=== PATIENT | male | born 1985 | race Two or more races ===

== ENCOUNTER 2016-11-07 04:40 | Emergency (ER) | payer OTHER ==
[~2016-11-07] VITALS: Ht 175.3 cm; Wt 99.8 kg
[2016-11-07 04:47] VITALS: BP 150/75
[2016-11-07] MEDS ORDERED: HYDR-971 PO (05:02)
[2016-11-07] MEDS ORDERED: LIDO5JEL3 MM (05:02)
--- NOTE | 2016-11-07 05:02 | PHYS DOC ---
Past Medical History Past Medical History: No Pertinent History Past Surgical History: No Surgical History Alcohol Use: None Drug Use: None Adult General Chief Complaint Chief Complaint: DENTAL PROBLEM HPI HPI Patient is a 21 year old male who presents with dental pain. Patient states 2 days ago he burned the roof of his mouth eating hot fish. He has had severe hard palate & gum pain since that time. Denies pain to his teeth. Reports aching pain to left side of his face. Denies fevers, vomiting, abscess, trismus. No relief with ibuprofen at home. Does not have a dentist. Review of Systems Review of Systems Constitutional: Denies fever or chills HENT: Reports gum pain Respiratory: Denies cough or shortness of breath Cardiovascular: Denies chest pain GI: Denies nausea, vomiting Musculoskeletal: Denies back pain or joint pain Integument: Denies rash Neurologic: Denies headache Current Medications Current Medications Current Medications Medications (Trade) Dose Ordered Sig/Estuardo Start Time Stop Time Status Last Admin Dose Admin Lidocaine HCl (Viscous Lidocaine) 15 ml 1X ONCE 11/07/16 05:15 11/07/16 05:16 DC 11/07/16 05:08 15 ML Allergies Allergies Allergies Coded Allergies Type Severity Reaction Last Updated Verified No Known Drug Allergies 11/07/16 No Physical Exam Physical Exam Constitutional: obese, no acute distress, non-toxic appearance. HENT: Normocephalic, atraumatic, bilateral external ears normal, oropharynx moist, nose normal. hard palate anteriorly on the left side with mild erythema & inflammation, no palpable fluctuance or induration, no dental caries or focal tooth pain. no trismus. left submandibular lymphadenopathy. Eyes: conjunctiva normal, no discharge. Cardiovascular: no edema. Lungs & Thorax: no respiratory distress. Abdomen: nondistended. Skin: Warm, dry, Extremities: No deformity Neurologic: Alert and oriented X 3 Current Patient Data Vital Signs Vital Signs Date Time Temp Pulse Resp B/P Pulse Ox O2 Delivery O2 Flow Rate FiO2 11/07/16 04:47 98.2 89 18 98 Room Air 98.2 EKG EKG [] Radiology/Procedures Radiology/Procedures [] Course & Med Decision Making Course & Med Decision Making Pertinent Labs and Imaging studies reviewed. (See chart for details) Patient presents with oral pain. No evidence of dental infection, appears to be minor inflammation related to hot food. Gave viscous lidocaine & 6 tablets of norco as he is having severe discomfort. Recommend continue ibuprofen, avoid spicy or crunchy foods, follow up as needed with a dentist if not improving in 2-3 days. Come back for difficulty breathing or swallowing, or otherwise worsening condition. Discharged home in stable condition. [] Dragon Disclaimer Dragon Disclaimer This electronic medical record was generated, in whole or in part, using a voice recognition dictation system. Departure Departure Impression: Primary Impression: Gum inflammation Disposition: 01 HOME, SELF-CARE Condition: STABLE Patient Instructions: Teeth and Gum Care, [id number] Additional Instructions: You were seen in the emergency department today for inflammation of your gums. This is likely related to eating hot food. Please take ibuprofen for pain, use lidocaine & norco as needed. No drinking alcohol or driving while taking norco. Follow up with a dentist if not improving in 2-3 days. Come back for difficulty breathing or swallowing, or any otherwise worsening condition. Scripts Hydrocodone/Apap 5-325 ([place] 5-325 Tablet)1 Each Tablet1 Tab PO PRN Q6HRS PRN PAIN #6 TAB Ref 0 Prov:HARDY KEEN MD 11/07/16 Lidocaine Hcl 5 Ml Jel..ml.5 Ml MM BID PRN oral pain #30 ML Prov:HARDY KEEN MD 11/07/16 HARDY KEEN MD Nov 07, 2016 05:02
[2016-11-07] MEDS ORDERED: LIDOCAINE 2% VISCOUS 15 ML SOLUTION. SWSW ONE (05:15)
== END 2016-11-07 05:17 | disposition home or self-care (01) ==
LOC: EDBD 04:40 → ER 04:40
DX: K05.10 Chronic gingivitis, plaque induced (principal)
CPT/HCPCS: 99283

== ENCOUNTER 2019-01-02 16:38 | Emergency (ER) | payer OTHER, SELFPAY ==
[~2019-01-02] VITALS: Ht 177.8 cm; Wt 90.7 kg
[~2019-01-02 16:38] MED LIST: HYDR-3164 PO; LIDO5JEL3 MM
[2019-01-02] MEDS ORDERED: ONDANSETRON PF 4 MG/2 ML VIAL. IV ONE (17:00)
[2019-01-02] MEDS ORDERED: IV NORMAL SALINE 1000ML BAG 1,000 ML IV ONE (17:00)
[2019-01-02 17:17] LABS: BASO # 0.1 x10^3/uL (0.0-0.2); BASO % 1 % (0-3); EOS # 0.2 x10^3/uL (0.0-0.7); EOS % 2 % (0-3); HEMATOCRIT 43.6 % (39.0-53.0); HEMOGLOBIN 15.1 g/dL (13.0-17.5); LYMPH # 1.4 x10^3/uL (1.0-4.8); LYMPH % 18 % (24-48); MEAN CORPUSCULAR HEMOGLOBIN 34 pg (25-35); MEAN CORPUSCULAR HGB CONC 35 g/dL (31-37); MEAN CORPUSCULAR VOLUME 97 fL (79-100); MONO # 0.8 x10^3/uL (0.0-1.1); MONO % 10 % (0-9); NEUT # 5.3 x10^3uL (1.8-7.7); NEUT % 68 % (31-73); PLATELET COUNT 165 x10^3/uL (140-400); RED CELL DISTRIBUTION WIDTH 14.2 % (11.5-14.5); WHITE BLOOD COUNT 7.7 x10^3/uL (4.0-11.0)
[2019-01-02 17:23] VITALS: BP 150/67
[2019-01-02 17:23] LABS: BILIRUBIN,URINE NEGATIVE (NEG); CLARITY,URINE CLEAR; COLOR,URINE YELLOW; NITRITE,URINE NEGATIVE (NEG); PROTEIN,URINE NEGATIVE (NEG-TRACE); UROBILINOGEN,URINE 0.2 mg/dL (0.2 mg/dL)
[2019-01-02 17:25] LABS: FECAL OB PT NEGATIVE (NEG)
[2019-01-02 17:30] LABS: BARBITURATES NEG (NEG); BENZODIAZEPINES NEG (NEG); CANNABINOIDS NEG (NEG); COCAINE NEG (NEG); METHADONE NEG (NEG); OPIATES NEG (NEG); PHENCYCLIDINE NEG (NEG)
[2019-01-02 17:31] LABS: AMPHETAMINE/METHAMPHETAMINE NEG (NEG)
[2019-01-02 17:32] LABS: CREATININE 0.9 mg/dL (0.7-1.3); POTASSIUM 3.6 mmol/L (3.5-5.1)
[2019-01-02 17:35] LABS: BACTERIA,URINE 0 /HPF (0-FEW); RBC,URINE 0 /HPF (0-2); WBC,URINE 0 /HPF (0-4)
[2019-01-02 17:40] LABS: ALBUMIN 3.9 g/dL (3.4-5.0); ALBUMIN/GLOBULIN RATIO 1.1 (1.0-1.7); TOTAL BILIRUBIN 0.6 mg/dL (0.2-1.0); TOTAL PROTEIN 7.3 g/dL (6.4-8.2)
[2019-01-02] MEDS ORDERED: CONTRAST GIVEN. MC PRN (17:45)
[2019-01-02] MEDS ORDERED: IOHEXOL 300 MG/ML 100ML VIAL. IV ONE (18:00)
--- NOTE | 2019-01-02 18:13 | RAD ---
CT scan of the abdomen and pelvis with contrast 01/02/2019 CLINICAL HISTORY: Abdominal pain. Bloody stools. TECHNIQUE: After the intravenous administration of 75 cc of Omnipaque 300, contiguous, 5 mm axial sections were obtained through the abdomen and pelvis. One or more of the following individualized dose reduction techniques were utilized for this study: 1. Automated exposure control. 2. Adjustment of the mA and/or kV according to patient size. 3. Use of iterative reconstruction technique. FINDINGS: No previous studies are available for comparison. Images through the lung bases are within normal limits. The liver, spleen, pancreas, adrenal glands and right kidney are within normal limits. A 1.3 cm rounded low-attenuation lesion is seen involving the superior/midpole of the left kidney. This likely represents a cyst. The abdominal aorta tapers normally. The gallbladder is slightly contracted. No free fluid or free air is seen within the abdomen. There is no evidence of bowel obstruction. Air and stool is seen throughout the colon. The appendix is well-visualized and is within normal limits. Images through the pelvis demonstrate the urinary bladder to be slightly contracted. Scattered diverticula are seen involving the sigmoid colon. No inflammatory changes are seen in the adjacent fat. No free fluid is noted. Very mild S-shaped curvature of the thoracolumbar spine is seen. IMPRESSION: No acute abnormality is seen. Electronically signed by: Herman Grajeda MD (01/02/2019 6:10 PM) [facility]
[2019-01-02] MEDS ORDERED: FAMO20TA5 PO (19:09)
--- NOTE | 2019-01-02 19:09 | PHYS DOC ---
Past Medical History Past Medical History: No Pertinent History (SAIMA BURLESON APRN) Past Surgical History: No Surgical History (SAIMA BURLESON APRN) Alcohol Use: Heavy Drug Use: None (SAIMA BURLESON APRN) Adult General Chief Complaint Chief Complaint: BLOODY STOOL HPI HPI Patient is a 33 year old male with no Medical history presents to the ED today complaining of dark stools/bloody stools, patient states symptoms have been going on intermittently for 1-1/2 months. He states he also has intermittent episodes of nausea and occasional vomiting. Patient denies any fever. Denies any hematemesis. He is also complaining of intermittent episodes of abdominal cramping. Patient states he has been seen at the clinic and was told he has hemorrhoids but does not believe this is the true cause of his bloody stools. (SAIMA BURLESON APRN) Review of Systems Review of Systems Constitutional: Denies fever or chills [] Eyes: Denies change in visual acuity, redness, or eye pain [] HENT: Denies nasal congestion or sore throat [] Respiratory: Denies cough or shortness of breath [] Cardiovascular: No additional information not addressed in HPI [] GI: Reports occasional abdominal pain, nausea, vomiting bloody stools. : Denies dysuria or hematuria [] Musculoskeletal: Denies back pain or joint pain [] Integument: Denies rash or skin lesions [] Neurologic: Denies headache, focal weakness or sensory changes [] All other systems were reviewed and found to be within normal limits, except as documented in this note. (SAIMA BURLESON APRN) Current Medications Current Medications Current Medications Medications (Trade) Dose Ordered Sig/Estuardo Start Time Stop Time Status Last Admin Dose Admin Info (CONTRAST GIVEN -- Rx MONITORING) 1 each PRN DAILY PRN 01/02/19 17:45 01/02/19 19:13 DC Iohexol (Omnipaque 300 Mg/ml) 75 ml 1X ONCE 01/02/19 18:00 01/02/19 18:01 DC 01/02/19 17:46 75 ML Ondansetron HCl (Zofran) 4 mg 1X ONCE 01/02/19 17:00 01/02/19 17:02 DC Sodium Chloride 1,000 ml @ 1,000 mls/hr 1X ONCE 01/02/19 17:00 01/02/19 17:59 DC 01/02/19 17:15 1,000 MLS/HR (SUMMER ROBLES DO) Allergies Allergies Allergies Coded Allergies Type Severity Reaction Last Updated Verified No Known Drug Allergies 11/07/16 No (SUMMER ROBLES DO) Physical Exam Physical Exam Constitutional: Well developed, well nourished, no acute distress, non-toxic appearance. [] HENT: Normocephalic, atraumatic, bilateral external ears normal, oropharynx moist, no oral exudates, nose normal. [] Eyes: PERRLA, EOMI, conjunctiva normal, no discharge. [] Neck: Normal range of motion, no tenderness, supple, no stridor. [] Cardiovascular:Heart rate regular rhythm, no murmur [] Lungs & Thorax: Bilateral breath sounds clear to auscultation [] Abdomen: Bowel sounds normal, soft, no tenderness, no masses, no pulsatile masses. [] Rectal exam with Greta as expeller operator External rectum appears normal, no internal or external hemorrhoids noted. No masses. Skin: Warm, dry, no erythema, no rash. [] Back: No tenderness, no CVA tenderness. [] Extremities: No tenderness, no cyanosis, no clubbing, ROM intact, no edema. [] Neurologic: Alert and oriented X 3, normal motor function, normal sensory function, no focal deficits noted. [] Psychologic: Affect normal, judgement normal, mood normal. [] (SAIMA BURLESON APRN) Current Patient Data Vital Signs Vital Signs Date Time Temp Pulse Resp B/P (MAP) Pulse Ox O2 Delivery O2 Flow Rate FiO2 01/02/19 17:23 67 18 150/67 (94) 98 Room Air 01/02/19 16:50 97.9 97.9 (SUMMER ROBLES DO) Lab Values Laboratory Tests Test 01/02/19 16:55 01/02/19 17:05 Urine Collection Type Unknown Urine Color Yellow Urine Clarity Clear Urine pH 6.0 Urine Specific [place] 1.010 Urine Protein Negative mg/dL (NEG-TRACE) Urine Glucose (UA) Negative mg/dL (NEG) Urine Ketones (Stick) Negative mg/dL (NEG) Urine Blood Negative (NEG) Urine Nitrite Negative (NEG) Urine Bilirubin Negative (NEG) Urine Urobilinogen Dipstick 0.2 mg/dL (0.2 mg/dL) Urine Leukocyte Esterase Negative (NEG) Urine RBC 0 /HPF (0-2) Urine WBC 0 /HPF (0-4) Urine Bacteria 0 /HPF (0-FEW) Stool Occult Blood Negative (NEG) Urine Opiates Screen Neg (NEG) Urine Methadone Screen Neg (NEG) Urine Barbiturates Neg (NEG) Urine Phencyclidine Screen Neg (NEG) Urine Amphetamine/Methamphetamine Neg (NEG) Urine Benzodiazepines Screen Neg (NEG) Urine Cocaine Screen Neg (NEG) Urine Cannabinoids Screen Neg (NEG) Urine Ethyl Alcohol Pos (NEG) White Blood Count 7.7 x10^3/uL (4.0-11.0) Red Blood Count 4.50 x10^6/uL (4.30-5.70) Hemoglobin 15.1 g/dL (13.0-17.5) Hematocrit 43.6 % (39.0-53.0) Mean Corpuscular Volume 97 fL (79-100) Mean Corpuscular Hemoglobin 34 pg (25-35) Mean Corpuscular Hemoglobin Concent 35 g/dL (31-37) Red Cell Distribution Width 14.2 % (11.5-14.5) Platelet Count 165 x10^3/uL (140-400) Neutrophils (%) (Auto) 68 % (31-73) Lymphocytes (%) (Auto) 18 % (24-48) L Monocytes (%) (Auto) 10 % (0-9) H Eosinophils (%) (Auto) 2 % (0-3) Basophils (%) (Auto) 1 % (0-3) Neutrophils # (Auto) 5.3 x10^3uL (1.8-7.7) Lymphocytes # (Auto) 1.4 x10^3/uL (1.0-4.8) Monocytes # (Auto) 0.8 x10^3/uL (0.0-1.1) Eosinophils # (Auto) 0.2 x10^3/uL (0.0-0.7) Basophils # (Auto) 0.1 x10^3/uL (0.0-0.2) Sodium Level 145 mmol/L (136-145) Potassium Level 3.6 mmol/L (3.5-5.1) Chloride Level 106 mmol/L (98-107) Carbon Dioxide Level 28 mmol/L (21-32) Anion Gap 11 (6-14) Blood Urea Nitrogen 13 mg/dL (8-26) Creatinine 0.9 mg/dL (0.7-1.3) Estimated GFR (Cockcroft-Gault) 96.0 BUN/Creatinine Ratio 14 (6-20) Glucose Level 98 mg/dL (70-99) Calcium Level 9.0 mg/dL (8.5-10.1) Total Bilirubin 0.6 mg/dL (0.2-1.0) Aspartate Amino Transferase (AST) 21 U/L (15-37) Alanine Aminotransferase (ALT) 30 U/L (16-63) Alkaline Phosphatase 69 U/L (46-116) Total Protein 7.3 g/dL (6.4-8.2) Albumin 3.9 g/dL (3.4-5.0) Albumin/Globulin Ratio 1.1 (1.0-1.7) Lipase 214 U/L (73-393) Ethyl Alcohol Level 153 mg/dL (0-10) H Laboratory Tests 01/02/19 17:05 Laboratory Tests 01/02/19 17:05 (SUMMER ROBLES DO) EKG EKG [] (SAIMA BURLESON APRN) Radiology/Procedures Radiology/Procedures []PROCEDURE: CT ABD PELV W/ IV CONTRST ONLY CT scan of the abdomen and pelvis with contrast 01/02/2019 CLINICAL HISTORY: Abdominal pain. Bloody stools. TECHNIQUE: After the intravenous administration of 75 cc of Omnipaque 300, contiguous, 5 mm axial sections were obtained through the abdomen and pelvis. One or more of the following individualized dose reduction techniques were utilized for this study: 1. Automated exposure control. 2. Adjustment of the mA and/or kV according to patient size. 3. Use of iterative reconstruction technique. FINDINGS: No previous studies are available for comparison. Images through the lung bases are within normal limits. The liver, spleen, pancreas, adrenal glands and right kidney are within normal limits. A 1.3 cm rounded low-attenuation lesion is seen involving the superior/midpole of the left kidney. This likely represents a cyst. The abdominal aorta tapers normally. The gallbladder is slightly contracted. No free fluid or free air is seen within the abdomen. There is no evidence of bowel obstruction. Air and stool is seen throughout the colon. The appendix is well-visualized and is within normal limits. Images through the pelvis demonstrate the urinary bladder to be slightly contracted. Scattered diverticula are seen involving the sigmoid colon. No inflammatory changes are seen in the adjacent fat. No free fluid is noted. Very mild S-shaped curvature of the thoracolumbar spine is seen. IMPRESSION: No acute abnormality is seen. Electronically signed by: Herman Grajeda MD (01/02/2019 6:10 PM) [facility] DICTATED and SIGNED BY: HERMAN GRAJEDA MD DATE: 01/02/191809 (SAIMA BURLESON APRN) Course & Med Decision Making Course & Med Decision Making Pertinent Labs and Imaging studies reviewed. (See chart for details) This is a 33-year-old male patient presenting to the ED today complaining of intermittent episodes of bloody stools, nausea, vomiting, abdominal pain. Symptoms for 1-1/2 months, has been seen at a different clinic and was informed he has hemorrhoids. He has Anusol cream. Fecal occult is negative. CBC with a normal hemoglobin and hematocrit, WBCs normal. CMP with no acute findings. Drug screen noted for alcohol, alcohol level 153. Patient states he drinks heavily and drank before coming to the ED. patient was advised to consider getting help for alcohol use. The CT of the abdomen and pelvic is negative for any acute findings. He was also encouraged to consider smoking cessation. Follow-up with GI doctor provided. Discharged with famotidine. (SAIMA BURLESON APRN) Dragon Disclaimer Dragon Disclaimer This electronic medical record was generated, in whole or in part, using a voice recognition dictation system. (SAIMA BURLESON APRN) Departure Departure Impression: Primary Impression: Abdominal pain Additional Impressions: Alcohol abuse Smoking addiction Bloody stools Nausea and vomiting Disposition: HOME, SELF-CARE Condition: STABLE Referrals: NO PCP (PCP) VALENCIA BLANTON MD follow up in 1 week Patient Instructions: Alcohol Intoxication, Bloody Stools, [id number], Smoking Cessation Additional Instructions: You were evaluated in the emergency room, your CT of the abdomen and pelvic is negative. Continue using the cream you got from the clinic. Consider smoking cessation and getting help for alcohol use. Follow-up with the tobacco dipper provided in the next 1 week. Scripts Famotidine (FAMOTIDINE) 20 Mg Tablet 20 MG PO DAILY, #20 TAB Prov: SAIMA BURLESON OPERATIONS SUPPORT MANAGER 01/02/19 Attending Signature Attending Signature I have reviewed the PA/CORE CHECKER's note and plan of care. I was available for consultation as needed during the patient's visit in the emergency department. I agree with the clinical impression, plan, and disposition. (SUMMER ROBLES DO) Problem Qualifiers Primary Impression: Abdominal pain Abdominal location: unspecified location Qualified Codes: R10.9 - Unspecified abdominal pain Additional Impressions: Nausea and vomiting Vomiting type: unspecified Vomiting Intractability: unspecified Qualified Codes: R11.2 - Nausea with vomiting, unspecified SAIMA BURLESON OPERATIONS SUPPORT MANAGER January 02, 2019 19:09 SUMMER ROBLES DO Jan 07, 2019 06:35
== END 2019-01-02 19:10 | disposition home or self-care (01) ==
LOC: ER 16:38
DX: K92.1 Melena (principal); R11.2 Nausea with vomiting, unspecified; F10.20 Alcohol dependence, uncomplicated; Y90.8 Blood alcohol level of 240 mg/100 ml or more; F17.200 Nicotine dependence, unspecified, uncomplicated; R10.9 Unspecified abdominal pain
CPT/HCPCS: 36415; 74177; 80053; 80307; 81001; 82274; 83690; 85025; 96360; 96361; 99285; G0480; J7030; Q9967